=== PATIENT | female | born 1995 | race African-American/Black ===

== ENCOUNTER 2020-04-17 21:52 | Emergency (ER) | payer OTHER ==
[~2020-04-17] VITALS: Ht 175.3 cm; Wt 60.0 kg
[2020-04-17] MEDS ORDERED: IBUPROFEN 600MG TABLET PO ONE (22:30)
[2020-04-17 22:47] VITALS: BP 118/82
== END 2020-04-18 00:03 | disposition home or self-care (01) ==
LOC: ER 21:52
DX: S20.219A Contusion of unspecified front wall of thorax, initial encounter (principal); M79.18 Myalgia, other site; V49.50XA Passenger injured in collision with unspecified motor vehicles in traffic accident, initial encounter; Y93.89 Activity, other specified; Y92.488 Other paved roadways as the place of occurrence of the external cause
CPT/HCPCS: 71045; 99283